=== PATIENT | male | born 1990 | race Caucasian/White ===

== ENCOUNTER 2021-05-05 12:05 | Emergency (ER) | payer OTHER ==
[2021-05-05 12:16] VITALS: RESP 18; TEMP 98.1
--- NOTE | 2021-05-05 12:59 | XR ---
EXAMINATION TYPE: XR chest 2V DATE OF EXAM: 05/05/2021 COMPARISON: None HISTORY: 30-year-old male with cough TECHNIQUE: PA and lateral views FINDINGS: The cardiomediastinal silhouette, aorta, and pulmonary vasculature are within normal limits. Mild inc reased interstitial density especially at the right mid and lower lung. No consolidation or pleural e ffusion. IMPRESSION: Slight increased interstitial density at the right mid and lower lung could reflect underlying subtle COVID infiltrates.
--- NOTE | 2021-05-05 13:30 | ED ---
URI HPI - General Chief Complaint: Upper Respiratory Infection Stated Complaint: Possible COVID+ Time Seen by Provider: 05/05/21 12:18 Source: patient, RN notes reviewed Mode of arrival: ambulatory Limitations: no limitations - History of Present Illness Initial Comments: Patient is a 30-year-old male that presents to the emergency department complaining of upper respiratory tract symptoms including cough and chest congestion nasal drip and muscle aches several days.. He notes that he recently started a job had to call in sick and they weren't worried and wanted to get tested for Covid. Patient was otherwise a well-appearing 22-year-old male in no apparent distress or pain. He denied any shortness of breath. He denied any other issues. He denied chest pain headache nausea vomiting diarrhea constipation fever fatigue chills. - Related Data Home Medications Medication Instructions Recorded Confirmed No Known Home Medications 05/05/21 05/05/21 Allergies Allergy/AdvReac Type Severity Reaction Status Date / Time No Known Allergies Allergy Verified 05/05/21 12:44 Review of Systems ROS Statement: Those systems with pertinent positive or pertinent negative responses have been documented in the HPI. ROS Other: All systems not noted in ROS Statement are negative. Past Medical History Past Medical History: No Reported History Past Surgical History: Back Surgery Smoking Status: Never smoker Past Alcohol Use History: None Reported Past Drug Use History: None Reported General Exam Limitations: no limitations General appearance: alert, in no apparent distress, obese Head exam: Present: atraumatic, normocephalic, normal inspection Eye exam: Present: normal appearance, PERRL, EOMI. Absent: scleral icterus, conjunctival injection, periorbital swelling ENT exam: Present: normal exam, mucous membranes moist Neck exam: Present: normal inspection Respiratory exam: Present: normal lung sounds bilaterally. Absent: respiratory distress, wheezes, rales, rhonchi, stridor Cardiovascular Exam: Present: regular rate, normal rhythm, normal heart sounds. Absent: systolic murmur, diastolic murmur, rubs, gallop, clicks GI/Abdominal exam: Present: soft, normal bowel sounds. Absent: distended, tenderness, guarding, rebound, rigid Extremities exam: Present: normal inspection, full ROM, normal capillary refill. Absent: tenderness, pedal edema, joint swelling, calf tenderness Neurological exam: Present: alert, oriented X3 Psychiatric exam: Present: normal affect, normal mood Skin exam: Present: warm, dry, intact, normal color. Absent: rash Course Vital Signs 05/05/21 12:12 Temperature 98.1 F Pulse Rate 90 Respiratory 18 Rate Blood Pressure 140/93 O2 Sat by Pulse 95 Oximetry Medical Decision Making - Medical Decision Making 30-year-old male complaining of upper respiratory tract symptoms for the past several days. Covid test, chest x-ray ordered. Covid test negative. Chest x-ray shows right lower lobe infiltrates possibly early signs of Covid. Patient most likely experiencing another upper respiratory tract infection caused by virus other than Covid Case discussed with Dr. Prescott, patient discharge home with follow-up to primary care. - Lab Data Lab Results 05/05/21 Range/Units 12:44 Coronavirus (PCR) Not Detected (Not Detectd) - Radiology Data Radiology results: report reviewed, image reviewed Chest x-ray: Slight increased interstitial density at the right mid and lower lung could reflect underlying subtle Covid infiltrates. Disposition Clinical Impression: Acute upper respiratory infection Disposition: HOME SELF-CARE Condition: Stable Instructions (If sedation given, give patient instructions): Upper Respiratory Infection (ED) Additional Instructions: Please return to the Emergency Department if symptoms worsen or any other concerns. Follow-up with primary care 1-2 days. Conservative management with Tylenol Motrin alternating every 3 hours for fever aches and pains. Increase oral fluids. Is patient prescribed a controlled substance at d/c from ED?: No Referrals: None,Stated [Primary Care Provider] - 1-2 days Time of Disposition: 13:30
[2021-05-05 13:47] VITALS: BP 133/70; PULSE 82
== END 2021-05-05 13:47 | disposition home or self-care (01) ==
LOC: EC 12:05
DX: J06.9 Acute upper respiratory infection, unspecified (principal); Z20.822 Contact with and (suspected) exposure to COVID-19
CPT/HCPCS: 71046; 87635; 99283

== ENCOUNTER 2021-07-06 12:32 | Emergency (ER) | payer OTHER ==
[2021-07-06 12:51] VITALS: BP 153/108; PULSE 96; RESP 20; TEMP 98.3
--- NOTE | 2021-07-06 14:35 | ED ---
General Adult HPI - General Chief complaint: Upper Respiratory Infection Stated complaint: Covid symptoms Time Seen by Provider: 07/06/21 14:02 Source: patient Mode of arrival: ambulatory Limitations: no limitations - History of Present Illness Initial comments: 30-year-old male presents to the emergency department after being exposed to COVID-19 last week. Patient states he has had a runny nose, feels cold, and has been tired for the last 5 days. States he is here to get a COVID-19 test. States he has been vaccinated for COVID-19. Patient denies any chest pain, shortness of breath, cough, abdominal pain, hemoptysis, headache or fever. - Related Data Home Medications Medication Instructions Recorded Confirmed No Known Home Medications 05/05/21 05/05/21 Allergies Allergy/AdvReac Type Severity Reaction Status Date / Time No Known Allergies Allergy Verified 07/06/21 12:48 Review of Systems ROS Statement: Those systems with pertinent positive or pertinent negative responses have been documented in the HPI. ROS Other: All systems not noted in ROS Statement are negative. Past Medical History Past Medical History: No Reported History History of Any Multi-Drug Resistant Organisms: None Reported Past Surgical History: Back Surgery Past Psychological History: Anxiety Smoking Status: Never smoker Past Alcohol Use History: None Reported Past Drug Use History: None Reported General Exam Limitations: no limitations General appearance: alert, in no apparent distress Head exam: Present: atraumatic, normocephalic, normal inspection ENT exam: Present: normal exam, mucous membranes moist Neck exam: Present: normal inspection, full ROM Respiratory exam: Present: normal lung sounds bilaterally. Absent: respiratory distress, wheezes, rales, rhonchi, stridor Cardiovascular Exam: Present: regular rate, normal rhythm, normal heart sounds. Absent: systolic murmur, diastolic murmur, rubs, gallop, clicks GI/Abdominal exam: Present: soft, normal bowel sounds. Absent: distended, tenderness, guarding, rebound, rigid Extremities exam: Present: normal inspection, full ROM Back exam: Present: normal inspection Neurological exam: Present: alert, oriented X3, CN II-XII intact Psychiatric exam: Present: normal affect, normal mood Skin exam: Present: warm, dry, intact, normal color. Absent: rash Course Vital Signs 07/06/21 12:48 Temperature 98.3 F Pulse Rate 96 Respiratory 20 Rate Blood Pressure 153/108 O2 Sat by Pulse 97 Oximetry Medical Decision Making - Medical Decision Making 30-year-old male presented to the emergency department after being exposed to COVID-19 last week. He states he's here for a COVID-19 test. His rapid antibody was COVID-19 negative. Sent home in stable condition. Strict return precautions given. Patient to follow up with with primary care provider in next 1-2 days. - Lab Data Lab Results 07/06/21 Range/Units 12:53 Coronavirus (PCR) Not Detected (Not Detectd) Disposition Clinical Impression: Lab test negative for COVID-19 virus Disposition: HOME SELF-CARE Condition: Stable Instructions (If sedation given, give patient instructions): Viral Syndrome (ED) Additional Instructions: Please return to the emergency department with new or worsening symptoms. Follow up with primary care provider next 1-2 days. Is patient prescribed a controlled substance at d/c from ED?: No Referrals: None,Stated [Primary Care Provider] - 1-2 days Time of Disposition: 14:34
== END 2021-07-06 14:40 | disposition home or self-care (01) ==
LOC: EC 12:32
DX: Z20.822 Contact with and (suspected) exposure to COVID-19 (principal)
CPT/HCPCS: 87635; 99283

== ENCOUNTER 2021-10-08 11:32 | Observation (INO) | payer OTHER ==
[2021-10-08] MEDS ORDERED: HYDROcodone/APAP 5-325MG 1 EACH TAB PO STA (12:21)
[2021-10-08] MEDS ORDERED: GABAPENTIN 300 MG CAP PO STA (12:21)
--- NOTE | 2021-10-08 13:49 | CT ---
EXAMINATION TYPE: CT lumbar spine wo con DATE OF EXAM: 10/08/2021 1:34 PM COMPARISON: None available HISTORY: low back pain after fall x4 days ago. CT DLP: 1691.6 mGycm Automated exposure control for dose reduction was used. Technique: Unenhanced CT of the lumbar spine was performed. Bone and soft tissue window settings are submitted as well as coronal and sagittal reconstructions. Findings: Mild retrolisthesis of L4 over L5, likely degenerative. No definite acute vertebral body collapse or acute displaced fracture. Questionable small L1 vertebral body hemangioma. Degenerative changes at L4 -5 level with opposing endplate posterior osteophytosis and slightly degenerated disc. Milder degener ative changes seen at L5-S1 level. L1-L2: No significant central spinal canal stenosis, disc disease or neuroforaminal stenosis. L2-L3: No significant disc disease, central spinal canal stenosis or neuroforaminal stenosis. L3-L4: No significant disc disease, central spinal canal stenosis or neuroforaminal stenosis. L4-L5: Mild retrolisthesis, with posterior osteophytosis, focal central posterior disc protrusion and slightly prominent ligamentum flavum, causing moderate central spinal canal stenosis without signifi cant neuroforaminal stenosis. Suspected compression of the right L5 nerve root in its lateral recess. L5-S1: Diffuse posterior disc bulge more inclined to the left-side with focal left foraminal and extr a foraminal protrusion, associated with posterior osteophytosis, causing no significant central spina l canal stenosis and moderate to severe left neuroforaminal stenosis compressing the left L5 nerve ro ot. Suspected compression of the left S1 nerve root in its lateral recesses by adjacent osteophytosis . Scattered bilateral nonobstructing renal calculi measuring up to 3 mm. Hypodense hepatic parenchyma l ikely representing hepatic steatosis. No paraspinal lesion. IMPRESSION: No acute traumatic bony injury of the lumbar spine. Degenerative changes at L4-5 and L5-S1 level with spinal canal stenosis, neuroforaminal stenosis and nerve root compression as described above, please correlate clinically. Further MRI assessment can be considered if clinically required. Other incidental findings as described.
--- NOTE | 2021-10-08 13:54 | ED ---
General Adult HPI - General Chief complaint: Back Pain/Injury Stated complaint: [facility]-Fall Time Seen by Provider: 10/08/21 11:38 Source: patient, EMS, RN notes reviewed, old records reviewed Mode of arrival: ambulatory Limitations: no limitations - History of Present Illness Initial comments: Patient is a 31-year-old male who presents emergency Department complaining of back pain. Patient fell on Monday at work. He believes he injured his back. X-rays were done at [facility] however they found no injuries. Was discharged home. States he is having continued pain. Discusses shooting pain down the left posterior leg. States that occasionally a shooting numbness as well. Denies any saddle anesthesias. Denies any urinary or bowel retention. Patient does endorse a one-time episode of urinary incontinence yesterday. Primary complaint is pain with flexion of the left lhip as well as numbness in the left foot. Pain with movement of left hip. Presents for further evaluation. Has no other acute complaints at this time. - Related Data Home Medications Medication Instructions Recorded Confirmed Cyclobenzaprine [Flexeril] 10 mg PO Q8H PRN 10/08/21 10/08/21 Naproxen 500 mg PO Q12HR PRN 10/08/21 10/08/21 Allergies Allergy/AdvReac Type Severity Reaction Status Date / Time No Known Allergies Allergy Verified 10/08/21 14:18 Review of Systems ROS Statement: Those systems with pertinent positive or pertinent negative responses have been documented in the HPI. Review of Systems: CONST: Denies fever EYES: Denies blurry vision ENT: Denies nasal congestion C/V: Denies Chest pain RESP: Denies shortness of breath GI: Denies abdominal pain : Denies dysuria SKIN: Denies rash. MSK: Endorses back pain NEURO: Denies headache ROS Other: All systems not noted in ROS Statement are negative. Past Medical History Past Medical History: No Reported History History of Any Multi-Drug Resistant Organisms: None Reported Past Surgical History: Back Surgery Past Psychological History: Anxiety Smoking Status: Never smoker Past Alcohol Use History: None Reported Past Drug Use History: None Reported General Exam - General Exam Comments Initial Comments: General: Appears in no acute distress. HEAD: Normal with no signs of head trauma. EYES: PERRLA, EOMI, conjunctiva normal, no discharge. ENT: Hearing grossly intact, normal oropharynx. RESPIRATORY: Clear breath sounds bilaterally. No wheezes, rales, or rhonchi. C/V: Regular rate and rhythm. S1 and S2 auscultated, no edema, peripheral pulses 2+ and intact throughout ABD: Abd is soft, nontender, nondistended EXT: Pain with movement of the left hip. Patient is midline and somehwat left- sided lumbar spine tenderness to palpation. No thoracic, cervical spine tenderness to palpation. SKIN: No rashes or lesions observed on exposed skin. NEURO: Alert and oriented 4. Mild numbness of the left foot. No other acute complaints or findings at this time.Pain with active flexion of the left hip. No foot drop. No saddle anesthesias. Limitations: no limitations Course Vital Signs 10/08/21 11:33 Temperature 98.2 F Pulse Rate 78 Respiratory 20 Rate Blood Pressure 144/86 O2 Sat by Pulse 98 Oximetry Medical Decision Making - Medical Decision Making Based on the patient's presentation and physical exam, I'm concerned for possible bony traumatic injury the patient's lower back. Therefore we'll obtain CT imaging of the spine as well as provide him with oral analgesia. I do not believe that laboratory studies are necessary at this time. Has a one-time episode of what he believes to be possibly urinary incontinence yesterday, however no other red flag symptoms. Patient will be given analgesia medications. CT imaging revealed compression of the bilateral L4 and L5 nerve roots, with some disc protrusion as well. No obvious fractures. I discussed the findings with the patient. Due to his poor follow-up, continued pain As well as possible episode of urinary incontinence, I would like to admit him for an MRI. He was in agreement with this plan. I spoke with the admitting team under [facility] who accepted the patient. I also consulted neurology Dr. Padilla who agreed to evaluate the patient. I also consulted Dr. Guevara to evaluate the patient. They're in agreement this plan. MRI is ordered alis completed prior to the weekend. Disposition Clinical Impression: Back pain, Nerve root compression Disposition: ADMITTED IP TO [facility] Condition: Stable Referrals: None,Stated [Primary Care Provider] - 1-2 days Time of Disposition: 02:29
[2021-10-08] MEDS ORDERED: NALOXONE 0.4 MG/ML 1 ML VIAL IV PRN (14:36)
[2021-10-08 15:17] LABS: Basophils % (A) 1 %; Eosinophils # (A) 0.2 k/uL (0-0.7); Eosinophils % (A) 3 %; HCT 49.5 % (39.0-53.0); HGB 17.7 gm/dL (13.0-17.5); Lymphocytes # (A) 2.6 k/uL (1.0-4.8); Lymphocytes % (A) 35 %; MCH 30.4 pg (25.0-35.0); MCHC 35.8 g/dL (31.0-37.0); MCV 84.8 fL (80.0-100.0); Mean Platelet Volume 7.7; Monocytes # (A) 0.4 k/uL (0-1.0); Monocytes % (A) 6 %; Neutrophils % (A) 54 %; Platelet Count 221 k/uL (150-450); RBC 5.84 m/uL (4.30-5.90); RDW 13.3 % (11.5-15.5); WBC 7.5 k/uL (3.8-10.6)
[2021-10-08 15:26] LABS: African American GFR (CKD) >90 (>60 ml/min/1.73 sqM); Anion Gap 10 mmol/L; Blood Urea Nitrogen 13 mg/dL (9-20); Calcium 9.2 mg/dL (8.4-10.2); Carbon Dioxide 26 mmol/L (22-30); Chloride 104 mmol/L (98-107); Glucose 87 mg/dL (74-99); Non-African American GFR(CKD) >90 (>60 ml/min/1.73 sqM); Potassium 4.1 mmol/L (3.5-5.1); Sodium 140 mmol/L (137-145)
[2021-10-08] MEDS: HEPARIN SODIUM,PORCINE/PF 5,000 UNIT/0.5 ML SYRINGE SQ SCH (15:27)
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
--- NOTE | 2021-10-08 19:16 | MR ---
EXAMINATION TYPE: MR lumbar spine wo/w con DATE OF EXAM: 10/08/2021 COMPARISON: CT lumbar spine for a 10/08/2021. HISTORY: concern for cauda equina. TECHNIQUE: Multiplanar, multisequence images of the lumbar spine were acquired without and with 12 mL intravenou s Gadavist gadolinium contrast. FINDINGS: There is L1 vertebral body high T1/high T2 signal 19 mm hemangioma. L1-L2: Normal disc appearance without desiccation. No herniation, protrusion or disc bulging. No ca nal stenosis is present. Foramina are patent bilaterally. L2-L3: Normal disc appearance without desiccation. No herniation, protrusion or disc bulging. No ca nal stenosis is present. Foramina are patent bilaterally. L3-L4: Normal disc appearance without desiccation. No herniation, protrusion or disc bulging. No ca nal stenosis is present. Foramina are patent bilaterally. L4-L5: Normal disc appearance without desiccation. Central/central right disc herniation which abuts the forming nerves in the thecal sac. There may be 4 mm of inferior migration. Foramina are patent b ilaterally. L5-S1: Normal disc appearance without desiccation. Eccentric left disc bulge without significant spin al canal stenosis. Moderate left neural foramina stenosis secondary to facet joint arthropathy and di sc bulging Lumbar segments are intact. No paraspinal masses are identified. Conus medullaris has a normal appe arance. IMPRESSION: 1. No evidence for cauda equina. 2. L4-L5 central/central right disc herniation that abuts the forming nerves in the thecal sac. 4 mm of inferior migration. 3. L5-S1 eccentric left disc bulging which in combination with facet joint arthropathy moderately na rrows the left neural foramen at L5-S1.
[2021-10-08] MEDS: MORPHINE SULFATE 4 MG/ML SYRINGE IV PRN (20:37)
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
[2021-10-09] MEDS: HEPARIN SODIUM,PORCINE/PF 5,000 UNIT/0.5 ML SYRINGE SQ SCH ×4 (00:42→23:27)
[2021-10-09] MEDS: DEXAMETHASONE SOD PHOSPHATE 4 MG/ML 1 ML VIAL IVP SCH ×5 (00:42→23:26)
[2021-10-09] MEDS: MORPHINE SULFATE 4 MG/ML SYRINGE IV PRN (09:03)
[2021-10-09] MEDS ORDERED: HYDROcodone/APAP 5-325MG 1 EACH TAB PO PRN (10:22)
[2021-10-09] MEDS ORDERED: HYDROmorphone 0.5 MG/0.5 ML SYRINGE IVP PRN (10:23)
--- NOTE | 2021-10-09 10:59 | P.CNNES ---
History of Present Illness Consult date: 10/08/21 Requesting physician: Timi Joy Reason for Consult: concern for cauda equina History of Present Illness: Patient is a 31-year-old male came to the hospital by ambulance today at 11:32 AM for recent falls and acute back pain. Patient states that on 10/04/2021 he was at work ([employer]), where there is slippery floor because of some oily floor. He slipped and fell forwards, bracing with his hands. He states that he hurt his back and also twisted his back with a fall. Did not hit his head. After the fall, he grabbed the table to push himself up. He felt otherwise okay, some low back pain. Denied any numbness tingling or weakness. He went to urgent care, where he was given some muscle relaxer and anti-inflammatory medication and set up a time to see a doctor for check24's comp in [facility]. Patient states that the next day on Monday at work, he slipped again, but now fell backwards. The pain in the lower back got worse. He is noticing stabbing burning pain in the left lower back (pointing to the left SI region) that goes to the hip, shoots to the back of the calf goes to the foot. Sometimes the bottom of the left foot feels numb and tingly. Denies any symptoms in the right leg. He feels light weakness in the left leg, but no falls. Patient states that last night he just lost control of urine. He had an appointment with his Workmen's Comp. doctor today. When he informed about the symptoms, patient was recommended to go to the ER. Patient underwent CT of the lumbar spine, which revealed no acute traumatic bony injury of the lumbar spine. Degenerative changes at L4 5 and L5-S1 level with spinal canal stenosis, neural foraminal stenosis and nerve root compression. Please correlate clinically. MRI recommended. Patient underwent MRI of the lumbar spine with and without contrast, which revealed no evidence of cauda equina. L4 5 central/right disc herniation that abuts the forming nerves in the thecal sac. 4 mm of inferior migration. L5-S1 eccentric left disc bulging which in combination with facet joint arthropathy moderately narrows the left neural foramen at L5-S1. I personally reviewed MRI of the lumbar spine agree with the findings. Patient's CBC, Chem-7 is normal. Review of Systems As mentioned in detail in HPI. Denies any numbness of the perineal or rectal region. All other 14 point review of systems reviewed and are unremarkable. Past Medical History Past Medical History: No Reported History History of Any Multi-Drug Resistant Organisms: None Reported Past Surgical History: Back Surgery Past Anesthesia/Blood Transfusion Reactions: Unable to Obtain Additional Past Anesthesia/Blood Transfusion Reaction / Comment(s): Pt has never had anesthesia Smoking Status: Former smoker - Past Family History Father Family Medical History: Cancer Additional Family Medical History / Comment(s): Prostate cancer Mother Additional Family Medical History / Comment(s): Mother has had a cholecystectomy Medications and Allergies Home Medications Medication Instructions Recorded Confirmed Type Cyclobenzaprine [Flexeril] 10 mg PO Q8H PRN 10/08/21 10/08/21 History Naproxen 500 mg PO Q12HR PRN 10/08/21 10/08/21 History Allergies Allergy/AdvReac Type Severity Reaction Status Date / Time No Known Allergies Allergy Verified 10/08/21 14:18 Physical Examination - Vital Signs Vital Signs: Vital Signs Temp Pulse Resp BP Pulse Ox 10/08/21 11:33 98.2 F 78 20 144/86 98 Intake and Output 10/08/21 10/08/21 10/08/21 06:59 14:59 22:59 Other: Weight 116.573 kg 116.573 kg Patient is a young male, in no acute distress. Patient is alert awake oriented to time place and person. Speech and language functions are normal. Attention, concentration and fund of knowledge is adequate. On cranial examination, pupils are round and reacting to light, visual huber are full on confrontation, extraocular muscles are intact with no nystagmus. Face is symmetric, tongue protrudes to the midline. Palatal elevation and sensation normal, hearing and shoulder shrug normal, facial sensation normal. Shoulder shrug normal. On muscle strength testing, there is no pronator drift and the strength is normal in arms and legs distally and proximally. Deep tendon reflexes are 1 in the upper limbs, 2+ at the right knee 1+ left. Ankles are 1 on the right, trace left. Plantars are downgoing bilaterally. Sensory to touch is decreased medially in the left S1 dermatome (40% as compared to the right), whereas left L4 and L5 dermatomes are 80% as compared to the right. Hamstrings and upper thighs are equal 100% bilaterally. Cerebellar function showed no ataxia for [id number] testing. No dysdiadochokinesia. Tone and bulk of muscles normal. Gait normal. Walks with a slight limp. Difficulty walking on his toes heels because of back pain. On general examination, there is no carotid bruit or murmur, S1-S2 audible. Abd omen is soft nontender. No organomegaly, bowel sounds present. Chest is clear. Peripheral pulses are present. No edema. Results - Laboratory Findings CBC and BMP: 10/08/21 14:55 10/08/21 14:55 Abnormal Lab Findings: Abnormal Labs 10/08/21 14:55 Hgb 17.7 H Assessment and Plan Assessment: * Status post falls 2 due to slipping at work. * Acute left-sided L5-S1 disc herniation with radiculopathy. Probable left S1 radiculopathy. Plan: * MRI of the lumbar spine revealed significant left-sided disc herniation at L5-S1, probably producing left S1 radiculopathy. There is also disc herniation at L4 5 level, but is not clinically or radiographically significant. * Orthopedic spine on board. Agree with steroids. Patient started on dexamethasone 4 mg IV push every 6 hours. * Gabapentin 300 mg 2 times a day. * Mobic 7.5 mg daily. * Physical therapy.
--- NOTE | 2021-10-09 11:46 | P.PN ---
Subjective Progress Note Date: 10/09/21 Principal diagnosis: Left SI joint pain; L5-S1 left-sided disc herniation; L4-L5 right-sided disc herniation Patient was seen at bedside and is resting comfortably lying in semirecumbent position. Patient says he did get up several times last night to use the bathroom. He did say he feels that he is constipated now. Patient says he is still having weakness in his left leg. Patient says he does feel somewhat unsteady when he is getting up and using the bathroom. Patient says he has not had a bladder scan performed yet. Patient denies chest pain, fever, chest breath, nausea, vomiting, change in vision, loss of bowel/bladder control. Objective - Vital Signs Vital signs: Vital Signs Temp 98 F 10/09/21 07:00 Pulse 82 10/09/21 07:00 Resp 16 10/09/21 07:00 BP 128/80 10/09/21 07:00 Pulse Ox 96 10/09/21 07:00 Intake & Output 10/08/21 10/09/21 10/09/21 18:59 06:59 18:59 Intake Total 240 Balance 240 Weight 116.573 kg Intake: Oral 240 Other: Voiding Method Toilet # Voids 2 - Exam Inspection: Scarring present in the mid lower lumbar spine. Negative for any significant ecchymosis, erythema, open fractures, step-off deformities. Negative for any wounds/ulcers. Sensation: Sensation is equal, symmetric, bilateral intact in the upper extremities. Patient does have some generalized numbness/tingling on the left gluteal region. Sensation is equal,/comment by intact throughout rest of the lower extremities. Palpation: Moderate tenderness to palpation along the left sacroiliac region somewhat extending into the left gluteus. Nontender to palpation throughout the rest exam Range of motion: Patient has full range of motion bilateral upper extremities. Patient has full range of motion in right lower extremity. Patient does have limited range of motion in left hip flexion/extension due to pain. Patient also does have limited dorsiflexion left ankle. Limited flexion/extension in left knee due to pain Motor: 3+/5 in resisted left hip flexion/extension, knee flexion/extension, plantar flexion/dorsiflexion. 5/5 in all other major motor groups in right lower extremity and bilateral upper extremities Neurovascular status: Capillary Refill below 3 seconds in digits lower extremiti es. Dorsalis pedis pulses present bilaterally Special tests: Negative Homans bilaterally; negative Hoffmans bilaterally; negative clonus bilaterally - Labs CBC & Chem 7: 10/08/21 14:55 10/08/21 14:55 Labs: Abnormal Lab Results - Last 24 Hours (Table) 10/08/21 Range/Units 14:55 Hgb 17.7 H (13.0-17.5) gm/dL Assessment and Plan Assessment: 1. Left SI joint pain; L5-S1 left-sided disc herniation; L4-L5 right-sided disc herniation Plan: 1. Left SI joint pain; L5-S1 left-sided disc herniation; L4-L5 right-sided disc herniation - patient stable at bedside this afternoon. I did review the findings of the CT of lumbar spine with patient. MRI does show some disc bulging at L4 to L5 and L5-S1. There is no evidence of cauda equina at this time. Continue Decadron 4 mg IVP q6h. bladder scan is to be performed after voiding. At this time we do not recommend any emergent/urgent orthopedic surgical intervention. We'll continue to follow patient in the hospital. 2. Appreciate medical management 3. Pain management - Van 4. DVT prophylaxis - heparin 5. PT/OT - weightbearing as tolerated 6. Appreciate consult Time with Patient: Less than 30
[2021-10-09] MEDS: MELOXICAM 7.5 MG TAB PO SCH (12:09)
[2021-10-09] MEDS: GABAPENTIN 300 MG CAP PO SCH ×2 (12:09→20:36)
--- NOTE | 2021-10-09 16:12 | P.PN ---
Subjective Progress Note Date: 10/09/21 Principal diagnosis: Lower back pain Patient was seen and examined. No acute events overnight. Patient reports slight improvement in his lower back pain. He reports pain that radiates to the left lower extremity. Associated with numbness and tingling of his left lower extremity. He's been able to stand up and ambulate with much difficulty. He reports pain to be 8 out of 10 in severity. Bladder scan is pending. MRI lumbar spine was performed which showed no cauda equina, right disc herniation L4-L5, eccentric left disc bulging L5-S1 without significant spinal stenosis. Objective - Vital Signs Vital signs: Vital Signs Temp 98.1 F 10/09/21 14:09 Pulse 115 H 10/09/21 14:09 Resp 18 10/09/21 14:09 BP 139/96 10/09/21 14:09 Pulse Ox 93 L 10/09/21 14:09 Intake & Output 10/08/21 10/09/21 10/09/21 18:59 06:59 18:59 Intake Total 720 Output Total 3 Balance 717 Weight 116.573 kg Intake: Oral 720 Output: Post Void Residual 3 Other: Voiding Method Toilet Toilet # Voids 2 1 - Exam General: [non toxic], [no distress], [appears at stated age] Derm: [warm], [dry] Head: [atraumatic], [normocephalic], [symmetric] Eyes: [EOMI], [no lid lag], [anicteric sclera] Mouth: [no lip lesion], [mucus membranes moist] Cardiovascular: [S1S2 reg], [no murmur], [positive DP pulse bilateral], Lungs: [CTA bilateral], [no rhonchi, no rales] , [no accessory muscle use] Abdominal: [soft], [ nontender to palpation], [no guarding], [no appreciable organomegaly] Ext: [no gross muscle atrophy], [no edema], [no contractures] Neuro: [Strength 4-5 in the left lower extremity. 5 out of 5 strength in other extremities. Sensation intact to touch.] Psych: [Alert], [oriented], [appropriate affect] - Labs CBC & Chem 7: 10/08/21 14:55 10/08/21 14:55 Assessment and Plan Assessment: Assessment: #1 intractable lower back pain secondary to mechanical fall #2 L4-5, L5-S1 disc herniation due to the above #3 Obesity Plan: -Aspiration/fall precaution -Pain management: [place] PRN, Dilaudid PRN (only when needed), Mobic daily -Start gabapentin 300 mg by mouth twice a day -Decadron formoterol grams IV every 6 hours -Computed tomography scan reviewed of the lumbar spine -MRI lumbar spine reviewed. -Neurology/orthopedics/spine surgery recommendations appreciated -Continue with neurovascular checks -DVT prophylaxis SCDs for today -PT consulted Patient continues to require intermittent doses of Dilaudid as needed for pain control. However, his pain is slowly improving. Advised patient to ambulate and avoid IV narcotics as much as possible. Anticipated DC home in 1-2 days if able to achieve adequate pain control.
[2021-10-10] MEDS: DEXAMETHASONE SOD PHOSPHATE 4 MG/ML 1 ML VIAL IVP SCH (05:43)
[2021-10-10 07:48] VITALS: BP 194/63; PULSE 81; RESP 18; TEMP 97.6
[2021-10-10] MEDS: GABAPENTIN 300 MG CAP PO SCH (08:35)
[2021-10-10] MEDS: HEPARIN SODIUM,PORCINE/PF 5,000 UNIT/0.5 ML SYRINGE SQ SCH (08:36)
[2021-10-10] MEDS: MELOXICAM 7.5 MG TAB PO SCH (08:36)
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
--- NOTE | 2021-10-10 09:41 | P.PN ---
Subjective Progress Note Date: 10/09/21 Patient was seen for a follow-up. Patient denies any constant area of numbness. No weakness. Patient's left leg and foot bothers him off and on. Patient states medicines are helping him. He feels constipated likely from pain medication. Objective - Vital Signs Vital signs: Vital Signs Temp 97.6 F 10/10/21 07:00 Pulse 81 10/10/21 07:00 Resp 18 10/10/21 07:00 BP 194/63 10/10/21 07:00 Pulse Ox 92 L 10/10/21 07:00 Intake & Output 10/09/21 10/10/21 10/10/21 18:59 06:59 18:59 Intake Total 1200 Output Total 3 Balance 1197 Intake: Oral 1200 Output: Post Void Residual 3 Other: Voiding Method Toilet Toilet # Voids 1 2 - Exam Patient's mental status, speech and language functions are normal. Cranial nerves are normal. Muscle strength is normal in the arms and legs. Left leg has some guarding because of pain. No weakness of the ankle dorsiflexion, inversion, eversion, toe extension, toe flexion. - Labs CBC & Chem 7: 10/08/21 14:55 10/08/21 14:55 Assessment and Plan Assessment: * Status post falls 2 due to slipping at work. * Acute left-sided L5-S1 disc herniation with radiculopathy. Probable left S1 radiculopathy. Plan: * MRI of the lumbar spine revealed significant left-sided disc herniation at L5- S1, probably producing left S1 radiculopathy. There is also a disc herniation at L4 5 level, but is not clinically or radiographically significant. * Orthopedic spine on board. Agree with steroids. Patient started on dexamethasone 4 mg IV push every 6 hours. * Gabapentin 300 mg 2 times a day. May increase the dose if needed. * Mobic 7.5 mg daily. * Physical therapy. * Neurologically clear, if cleared by orthopedic surgery. Recommend follow-up with orthopedic spine surgery as outpatient.
--- NOTE | 2021-10-10 09:46 | P.PN ---
Subjective Principal diagnosis: Left SI joint pain; L5-S1 left-sided disc herniation; L4-L5 right-sided disc herniation Patient was seen at bedside and is resting comfortably sitting up in chair.. Patient says he did get up several times last night to use the bathroom. Patient says he is still having weakness in his left leg. Patient says he is feeling much better and says he walked around the room several times yesterday. Patient denies chest pain, fever, chest breath, nausea, vomiting, change in vision, loss of bowel/bladder control. Objective - Vital Signs Vital signs: Vital Signs Temp 97.6 F 10/10/21 07:00 Pulse 81 10/10/21 08:00 Resp 18 10/10/21 08:00 BP 194/63 10/10/21 07:00 Pulse Ox 92 L 10/10/21 07:00 Intake & Output 10/09/21 10/10/21 10/10/21 18:59 06:59 18:59 Intake Total 1200 480 Output Total 3 Balance 1197 480 Intake: Oral 1200 480 Output: Post Void Residual 3 Other: Voiding Method Toilet Toilet Toilet # Voids 1 2 - Exam Inspection: Scarring present in the mid lower lumbar spine. Negative for any significant ecchymosis, erythema, open fractures, step-off deformities. Negative for any wounds/ulcers. Sensation: Sensation is equal, symmetric, bilateral intact in the upper extremities. Patient does have some generalized numbness/tingling on the left gluteal region. Sensation is equal,/comment by intact throughout rest of the lower extremities. Palpation: Moderate tenderness to palpation along the left sacroiliac region somewhat extending into the left gluteus. Nontender to palpation throughout the rest exam Range of motion: Patient has full range of motion bilateral upper extremities. Patient has full range of motion in right lower extremity. Patient does have limited range of motion in left hip flexion/extension due to pain. Patient also does have limited dorsiflexion left ankle. Limited flexion/extension in left knee due to pain Motor: 3+/5 in resisted left hip flexion/extension, knee flexion/extension, plantar flexion/dorsiflexion. 5/5 in all other major motor groups in right lower extremity and bilateral upper extremities Neurovascular status: Capillary Refill below 3 seconds in digits lower extremities. Dorsalis pedis pulses present bilaterally Special tests: Negative Homans bilaterally; negative Hoffmans bilaterally; negative clonus bilaterally - Labs CBC & Chem 7: 10/08/21 14:55 10/08/21 14:55 Assessment and Plan Assessment: 1. Left SI joint pain; L5-S1 left-sided disc herniation; L4-L5 right-sided disc herniation Plan: 1. Left SI joint pain; L5-S1 left-sided disc herniation; L4-L5 right-sided disc herniation - patient stable at bedside this afternoon. I did review the fi ndings of the CT of lumbar spine with patient. MRI does show some disc bulging at L4 to L5 and L5-S1. There is no evidence of cauda equina at this time. At this time we do not recommend any emergent/urgent orthopedic surgical intervention. Patient is orthopedically stable for discharge home. We recommend patient to follow-up in the outpatient setting with Dr. Guevara. Pain control with anti-inflammatory. Orthopedics is signing off at this time; please do not hesitate contact us for any further questions. 2. Appreciate medical management 3. Pain management - [facility] 4. DVT prophylaxis - heparin 5. PT/OT - weightbearing as tolerated 6. Appreciate consult Time with Patient: Less than 30
== END 2021-10-10 10:25 | disposition home or self-care (01) ==
LOC: EC 11:32 → 6NMEDSUR 14:36
PROVIDERS: ADMIT Internal Medicine; ATTEND Internal Medicine
DX: M51.17 Intervertebral disc disorders with radiculopathy, lumbosacral region (principal); K59.00 Constipation, unspecified; M47.819 Spondylosis without myelopathy or radiculopathy, site unspecified; R32 Unspecified urinary incontinence; M48.07 Spinal stenosis, lumbosacral region; M48.061 Spinal stenosis, lumbar region without neurogenic claudication; E66.9 Obesity, unspecified; Z68.36 Body mass index [BMI] 36.0-36.9, adult; M51.26 Other intervertebral disc displacement, lumbar region; M53.3 Sacrococcygeal disorders, not elsewhere classified; Z87.891 Personal history of nicotine dependence; W19.XXXA Unspecified fall, initial encounter; X50.1XXA Overexertion from prolonged static or awkward postures, initial encounter; W01.0XXA Fall on same level from slipping, tripping and stumbling without subsequent striking against object, initial encounter; Y99.0 Civilian activity done for income or pay; Z71.9 Counseling, unspecified; Z83.79 Family history of other diseases of the digestive system; Z80.42 Family history of malignant neoplasm of prostate
CPT/HCPCS: 96376 ×2; 96372 ×3; 96374; 96375; 99285; 80048; 85025; 72131; 72158; G0378 ×3; J2270 ×2; J1100 ×2; J1170; J1644 ×3; A9585

== ENCOUNTER → 2021-11-23 | Outpatient (CLI) | payer OTHER ==
--- NOTE | 2021-11-23 12:13 | XR ---
EXAMINATION TYPE: XR pelvis AP view, XR lumbar spine 3 views DATE OF EXAM: 11/23/2021 Comparison: CT 10/08/2021 Clinical History: 31-year-old male S30.0XXA slip and fall contusion Findings: Pelvis: SI joints appear symmetric and intact as does the pubic symphysis. The hips are symmetric and intact. Joint space is maintained. No acute fracture, subluxation, dislocation. Lumbar spine: 5 lumbar type vertebral bodies. Mild multilevel degenerative disc disease. Facet arthropathy mid to l ower lumbar spine with trace grade 1 retrolisthesis L4-L5. Vertebral body heights are preserved. Impression: 1. Pelvis: No acute osseous abnormality seen. 2. Lumbar spine: Facet arthropathy mid to lower lumbar spine. Mild degenerative disc disease througho ut. Degenerative trace grade 1 retrolisthesis at L4-L5. Note that these are age accelerated degenerat anastacia changes possibly related to body habitus. Query any smoking history. Refer to the 10/08/2021 MRI re garding disc herniations at L4-L5 and L5-S1. No vertebral compression collapse.
== END | disposition home or self-care (01) ==
LOC: RADXRMAIN 11:25
PROVIDERS: ATTEND Emergency Medicine
DX: M51.26 Other intervertebral disc displacement, lumbar region (principal); M51.36 Other intervertebral disc degeneration, lumbar region
CPT/HCPCS: 72100; 72170